=== PATIENT | female | born 1995 | race Caucasian/White ===

== ENCOUNTER 2019-07-10 14:07 | Emergency (ER) | payer OTHER ==
--- NOTE | 2019-07-10 14:48 | ER Document Report ---
ED Medical Screen (RME) - General Chief Complaint: Vaginal Bleeding Stated Complaint: CRAMPING Time Seen by Provider: 07/10/19 14:35 Notes: Patient is a G1, P0 7-week female who presents emergency department with a chief complaint of vaginal bleeding. She states that she had some abdominal cramping earlier today and found some blood on the toilet paper when she wiped. She also states that the cramping has gotten a little worse. She has a past medical history of hypothyroidism and ovarian cyst in the past. She has not seen an OB doctor, but has seen her primary care doctor. Exam: soft mildly tender lower abdomen. I have greeted and performed a rapid initial assessment of this patient. A comprehensive ED assessment and evaluation of the patient, analysis of test results and completion of medical decision making process will be conducted by an additional ED providers. - Related Data Allergies/Adverse Reactions: latex Allergy (Verified 07/10/19 14:10) Penicillins Allergy (Verified 07/10/19 14:10) Past Medical History - General Last Menstrual Period: 04/28/2019 - Social History Chew tobacco use (# tins/day): No Frequency of alcohol use: None Drug Abuse: None Physical Exam - Vital signs Vitals: Temp Pulse Resp BP Pulse Ox 98.1 F 101 H 16 120/75 99 07/10/19 14:12 07/10/19 14:12 07/10/19 14:12 07/10/19 14:12 07/10/19 14:12 Course - Vital Signs Vital signs: Temp Pulse Resp BP Pulse Ox 98.1 F 101 H 16 120/75 99 07/10/19 14:12 07/10/19 14:12 07/10/19 14:12 07/10/19 14:12 07/10/19 14:12
[2019-07-10 15:16] LABS: ABSOLUTE EOSINOPHILS # (AUTO) 0.1 10^3/uL (0.0-0.6); ABSOLUTE LYMPHOCYTES (AUTO) 2.1 10^3/uL (0.5-4.7); ABSOLUTE MONOCYTES (AUTO) 0.6 10^3/uL (0.1-1.4); ABSOLUTE NEUT (AUTO) 5.4 10^3/uL (1.7-8.2); BASOPHILS % (AUTO) 0.5 % (0-2); HEMATOCRIT 38.5 % (36.0-47.0); HEMOGLOBIN 13.4 g/dL (12.0-15.5); MEAN CORPUSCULAR HEMOGLOBIN 31.6 pg (27.0-33.4); MEAN CORPUSCULAR HGB CONC 34.8 g/dL (32.0-36.0); MEAN CORPUSCULAR VOLUME 91 fl (80-97); MONOCYTES % (AUTO) 7.3 % (3-13); PLATELET COUNT 244 10^3/uL (150-450); RED BLOOD COUNT 4.24 10^6/uL (3.72-5.28); RED CELL DISTRIBUTION WIDTH 12.4 % (11.5-14.0); SEGMENTED NEUTROPHILS % (AUTO) 65.2 % (42-78); TOTAL CELLS COUNTED % (AUTO) 100 %; WHITE BLOOD COUNT 8.2 10^3/uL (4.0-10.5)
[2019-07-10 15:19] LABS: APPEARANCE,URINE CLEAR; BILIRUBIN,URINE NEGATIVE (NEGATIVE); COLOR,URINE STRAW; GLUCOSE, URINE NEGATIVE (NEGATIVE); KETONES,URINE NEGATIVE (NEGATIVE); LEUKOCYTE ESTERASE,URINE NEGATIVE (NEGATIVE); NITRITE,URINE NEGATIVE (NEGATIVE); PROTEIN,URINE NEGATIVE (NEGATIVE); URINE SPECIFIC GRAVITY 1.002; UROBILINOGEN,URINE NEGATIVE mg/dL (<2.0)
--- NOTE | 2019-07-10 15:43 | ER Document Report ---
ED GI/ - General Chief Complaint: Vaginal Bleeding Stated Complaint: CRAMPING Time Seen by Provider: 07/10/19 14:35 Primary Care Provider: [facility] [Provider Group] - Follow up as needed MARQUIS URIAS DO [Primary Care Provider] - Follow up as needed Mode of Arrival: Ambulatory Information source: Patient Notes: 23-year-old female presented to ED for cramping and spotting. She is 7 weeks 1 para 0 last menstrual period May 18. She states she has been cramping most of the but the spotting is only been for couple da ys. She does have a history of hypothyroidism and ovarian cyst. She states she smokes a third a pack a day but is trying to quit does not drink or do any drugs lives with her family and does not work at this time. She is alert oriented respirations regular and unlabored speaking in full sentences. She states there is not a lot of blood but she is spotting. - HPI Patient complains to provider of: Pelvic pain - Left, , Vaginal bleeding - Spotting Onset: Other - Cramping has been throughout most of the the bleeding is been for couple days Timing/Duration: Intermittent Quality of pain: Cramping Severity at maximum: Mild Severity in ED: Mild Pain Level: 1 - Because the family is going to suffer for the fact that she did not Location: Pelvis Vaginal bleeding (Compared to normal period): Spotting Menstrual period history: LMP: 05/18/2019 : 1 Para: 0 heart tones (bpm): 153 EDC: 03/25/20 OB ultrasound done: Yes vitamins taken: Yes Associated symptoms: Nausea. denies: Vomiting Exacerbated by: Denies Relieved by: Denies Similar symptoms previously: Yes Recently seen / treated by doctor: Yes - Related Data Allergies/Adverse Reactions: latex Allergy (Verified 07/10/19 14:10) Penicillins Allergy (Verified 07/10/19 14:10) Past Medical History - General Information source: Patient Last Menstrual Period: 04/28/2019 - Social History Smoking Status: Current Every Day Smoker Cigarette use (# per day): Yes - 1/3 pack/day Chew tobacco use (# tins/day): No Smoking Education Provided: Yes - 4 minutes Frequency of alcohol use: None Drug Abuse: None Lives with: Family Family History: Reviewed & Not Pertinent Patient has suicidal ideation: No Patient has homicidal ideation: No - Past Medical History Cardiac Medical History: Reports: None Pulmonary Medical History: Reports: None EENT Medical History: Reports: None Neurological Medical History: Reports: None Endocrine Medical History: Reports: Hx Hypothyroidism Renal/ Medical History: Reports: Hx Ovarian Cysts Malignancy Medical History: Reports: None GI Medical History: Reports: None Musculoskeletal Medical History: Reports None Skin Medical History: Reports None Psychiatric Medical History: Reports: None Traumatic Medical History: Reports: None Infectious Medical History: Reports: None Surgical Hx: Negative Past Surgical History: Reports: None - Immunizations Immunizations up to date: Yes Review of Systems - Review of Systems Constitutional: No symptoms reported EENT: No symptoms reported Cardiovascular: No symptoms reported Respiratory: No symptoms reported Gastrointestinal: No symptoms reported Genitourinary: No symptoms reported Female Genitourinary: , Vaginal bleeding Musculoskeletal: No symptoms reported Skin: No symptoms reported Hematologic/Lymphatic: No symptoms reported Neurological/Psychological: No symptoms reported -: Yes All other systems reviewed and negative Physical Exam - Vital signs Vitals: Temp Pulse Resp BP Pulse Ox 98.1 F 101 H 16 120/75 99 07/10/19 14:12 07/10/19 14:12 07/10/19 14:12 07/10/19 14:12 07/10/19 14:12 Interpretation: Normal - General General appearance: Appears well, Alert - HEENT Head: Normocephalic, Atraumatic Eyes: Normal Pupils: PERRL - Respiratory Respiratory status: No respiratory distress Chest status: Nontender Breath sounds: Normal Chest palpation: Normal - Cardiovascular Rhythm: Regular Heart sounds: Normal auscultation Murmur: No - Abdominal Inspection: Normal Distension: No distension Bowel sounds: Normal Tenderness: Tender Organomegaly: No organomegaly - Back Back: Normal, Nontender - Extremities General upper extremity: Normal inspection, Nontender, Normal color, Normal ROM, Normal temperature General lower extremity: Normal inspection, Nontender, Normal color, Normal ROM, Normal temperature, Normal weight bearing. No: Yvette's sign - Neurological Neuro grossly intact: Yes Cognition: Normal Orientation: AAOx4 [place] Coma Scale Eye Opening: Spontaneous [place]is[place] Coma Scale Verbal: Oriented Marisela Coma Scale Motor: Obeys Commands Marisela Coma Scale Total: 15 Speech: Normal Motor strength normal: LUE, RUE, LLE, RLE Sensory: Normal - Psychological Associated symptoms: Normal affect, Normal mood - Skin Skin Temperature: Warm Skin Moisture: Dry Skin Color: Normal Course - Re-evaluation Re-evalutation: 07/10/19 17:21 Ultrasound and blood work discussed with patient and written report of ultrasound blood work given to patient except for the RhoGam because that is not been run yet. Sample was sent at 1640 and it is 1720 and is is not been received or run. - Vital Signs Vital signs: Temp Pulse Resp BP Pulse Ox 98.1 F 83 18 99/64 L 99 07/10/19 17:41 07/10/19 17:41 07/10/19 17:41 07/10/19 17:41 07/10/19 17:41 - Laboratory Result Diagrams: 07/10/19 14:58 Laboratory results interpreted by me: 07/10/19 07/10/19 07/10/19 14:58 14:58 14:58 Serum HCG, Qual POSITIVE H Beta HCG, Quant 18876.00 H Urine Blood SMALL H - Diagnostic Test Radiology reviewed: Image reviewed, Reports reviewed Discharge - Discharge Clinical Impression: Vaginal bleeding affecting early , Pelvic pain affecting in first trimester, antepartum Condition: Stable Disposition: HOME, SELF-CARE Additional Instructions: Pelvic Pain in Lower abdominal pain during can have many causes. We look for serious causes such as appendicitis, tubal , miscarriage, placental separation, or urinary tract infection. Less serious causes of pain include corpus luteum cyst (ovarian cyst of ) or stretching of the pelvic tissues by the enlarging uterus. Sometimes the pain comes from the bowels. If no specific cause for the pain is found, we attribute the pain to stretching of the uterine ligaments. This is called "round ligament strain." It is not dangerous. Just rest until the pain goes away. Call us or come back for reexamination if any problems occur, such as: (1) Pain that becomes more severe, steady, or becomes concentrated in one specific area. Also, pain that is more severe with movement or coughing. (2) Vomiting that persists or becomes more frequent. (3) Blood in the vomitus, urine, or bowel movements. Blood in the stool may have a tarry or black appearance. (4) Shaking chills or fever greater than 100 degrees. (5) The abdomen becomes more distended or swollen. (6) Bowel movements cease. (7) Vaginal bleeding. : You are . care is best started as early in as possible. If you're unsure about continuing this , you should discuss this with your physician or with tray worker at [facility]. You should take only medications approved by your physician. Acetaminophen can safely be taken for minor pains. As a rule, medication for chronic conditions such as asthma or seizures can safely be continued. You should dis cuss with the physician every medicine you take. Any regular exercise program can be continued. Talk to your physician, however, before engaging in competitive or demanding sports. Alcohol, smoking, and "street drugs" are dangerous to your baby. Cocaine is especially dangerous. Don't use any illicit drugs! BLEEDING DURING EARLY : You have been evaluated for passing blood while . While we take this symptom very seriously, most women with your degree of bleeding will go on to have a perfectly normal baby. At this time, there is no indication that a miscarriage will occur. (A miscarriage occurs when the fetus is abnormal. There is no medicine or treatment to prevent it.) A more serious cause of bleeding is tubal (or ectopic) . An ultrasound usually can show whether the is in the uterus or in the tube. Sometimes in early , no fetus is seen. In this case, careful follow-up, including repeat blood tests and repeat ultrasound, is necessary. Do not douche or have sex for at least a week, or until OK'd by the doctor. Don't use tampons. Call the doctor or return for re-examination if there is an increase in bleeding or cramping, extreme weakness, fainting, new abdominal pain, fever, or passage of tissue. RHOGAM: You did not need a RhoGam I was just given you an explanation of why you needed the test to be run. Rhogam is given to a woman who has Rh negative blood type when she has vaginal bleeding during her or at the time of the delivery of her baby. If a woman is Rh negative, her body will form antibodies against red blood cells from an Rh positive fetus or baby that mix with her blood during a threatened or actual miscarraige or delivery. These antibodies will remain in the woman's body forever and will attack any future Rh positive fetus preventing it from developing into a normal baby. Rhogam is given to prevent the mother's body from forming these antibodies. FOLLOW-UP CARE: If you have been referred to a physician for follow-up care, call the physicians office for an appointment as you were instructed or within the next two days. If you experience worsening or a significant change in your symptoms (very heavy bleeding with large clots of blood, passage of tissue, more severe abdominal / pelvic pain or cramping, feeling faint or severe weakness, fever, et c.), notify the physician immediately or return to the Emergency Department at any time for re-evaluation. OBSTETRIC-GYNECOLOGIC (OB-MEDICAL PRACTICE ASSISTANT) PHYSICIANS IN [place]: [facility] [address] [place] [address] [phone] For active duty and dependents diagnosed with a threatened or miscarriage, you should follow up in the following manner: Standard patients who have a local civilian provider should follow up with that provider. Patients of the Family Practice Clinic should call your Team Nurse at 8:00 am the following morning for further instructions. If you are neither a Standard patient nor a patient of the Family Practice Clinic, you should follow up at the [facility] ([facility]). Patients already enrolled in the [facility] OB Clinic, Prime patients not assigned to the Family Practice Clinic, and Active Duty patients not assigned to Family Practice Clinic should report to the [facility] Lab at 8:00 am the next morning that the [facility] OB Clinic is open and then you will be seen in the OB Clinic at 11:00 am. Forms: Smoking Cessation Education Referrals: MARQUIS URIAS DO [Primary Care Provider] - Follow up as needed [facility] [Provider Group] - Follow up as needed
--- NOTE | 2019-07-10 16:20 | RADIOLOGY REPORT (SQ) ---
EXAM DESCRIPTION: U/S OB TRANSVAGINAL W/O DOP COMPLETED DATE/TIME: 07/10/2019 4:03 pm REASON FOR STUDY: vaginal bleeding COMPARISON: None. TECHNIQUE: Transvaginal static and realtime grayscale images acquired of the pelvis. Additional aj cted spectral and color Doppler images recorded. All images stored on PACs. bHCG: Pending. CLINICAL DATES: 7 weeks 4 days. LIMITATIONS: None. FINDINGS: FETUS: Single Living intrauterine . ULTRASOUND EGA: 7 weeks 3 days. ULTRASOUND MITCHELL: 03/25/2020 EFW: Not applicable less than 20 weeks. CRL: 1.19 cm. FHR: 153 beats per minute. SURVEY: Too early to assess. AMNIOTIC FLUID: Adequate amount. PLACENTA: Not yet developed due to early gestation. SUBCHORIONIC BLEED: No. SIZE OF BLEED: Not applicable. UTERUS: Possible arcuate uterus. CERVICAL LENGTH: 3.2 cm. Closed. RIGHT ADNEXA: Normal ovary with normal vascular flow. No adnexal free fluid. No adnexal masses. LEFT ADNEXA: Normal flow. 2 small cysts. No adnexal free fluid. No adnexal masses. FREE FLUID: None. OTHER: No other significant finding. IMPRESSION: Living intrauterine gestation. Possible arcuate uterus. EGA 7 weeks 3 days. Trimester of : First trimester - 0 to 13 weeks. TECHNICAL DOCUMENTATION: JOB ID: [id number]- All Rights Reserved rev Reading location - IP/workstation name: [email or web address]
[2019-07-10 17:45] VITALS: BP 99/64
== END 2019-07-10 17:46 | disposition home or self-care (01) ==
LOC: ER 14:07
DX: O20.9 Hemorrhage in early pregnancy, unspecified (principal); O26.891 Other specified pregnancy related conditions, first trimester; R10.2 Pelvic and perineal pain; R11.0 Nausea; O99.331 Smoking (tobacco) complicating pregnancy, first trimester; F17.210 Nicotine dependence, cigarettes, uncomplicated; Z3A.01 Less than 8 weeks gestation of pregnancy; Z87.42 Personal history of other diseases of the female genital tract
CPT/HCPCS: 36415; 76817; 81001; 84702; 84703; 85025; 86900; 86901; 99284; 99406